=== PATIENT | female | born 1985 | race Caucasian/White ===

== ENCOUNTER 2025-02-18 11:03 | Inpatient (IN) | payer MEDICAID, SELFPAY ==
--- NOTE | 2025-02-18 11:06 | ECG_ITS ---
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
[2025-02-18 11:12] VITALS: BP 123/87; PULSE 81; RESP 18; TEMP 36.8; O2SAT 97
--- NOTE | 2025-02-18 11:24 | PC.NURSE ---
96 hour hold rights read and reviewed with patient. Patient verbalized understandings and copy of rights given to patient.
[2025-02-18 11:32] LABS: Basophils # 0.1 10^3/uL (0.0-0.1); Basophils % 0.8 %; Eosinophils # 0.2 10^3/uL (0.0-0.8); Eosinophils % 1.7 %; Hematocrit 38.4 % (36-47); Lymphocytes # 1.5 10^3/uL (0.8-4.8); Lymphocytes % 16.5 %; Mean Corpuscular HGB Conc 31.8 g/dL (30-55); Mean Corpuscular Hemoglobin 26.1 pg (27-33); Mean Corpuscular Volume 82.1 fl (85-98); Mean Platelet Volume 9.6 fL (7.4-10.4); Monocytes # 0.5 10^3/uL (0.2-0.9); Monocytes % 5.8 %; Neutrophils # 6.58 10^3/uL (1.8-7.7); Nucleated Red Blood Cells % 0 %; Platelet Count 374 10^3/cmm (157-399); Red Blood Count 4.68 10^6/uL (3.85-5.65); Red Cell Distribution Width 13.9 % (12.1-15.1); White Blood Count 8.78 10^3/uL (3.29-11.43)
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
--- NOTE | 2025-02-18 11:46 | PC.PHAR ---
patient states she used to be prescribed welbutrin 150 am and trazodone 100 qpm but haven't been filled in a very long time. long enough i cant find an external fill date
[2025-02-18 12:00] LABS: Acetaminophen < 5.0 ug/mL (10-30); Alanine Aminotransferase 13 U/L (0-33); Alcohol Level < 10 mg/dL (0-10); Alkaline Phosphatase 76 U/L (35-105); Aspartate Amino Transferase 15 U/L (0-32); Blood Urea Nitrogen 8 mg/dL (6-20); Calcium 8.9 mg/dL (8.5-10.5); Carbon Dioxide 22 mmol/L (22-29); Chloride 106 mmol/L (98-107); Globulin 2.8 g/dL (1.3-4.6); Glomerular Filtration Rate 94.2 mL/min (90-130); Glucose 96 mg/dL (65-115); Osmolality Calculated 282 mOsm/kg (285-295); Salicylate < 0.3 mg/dL (3-10); Sodium 137 mmol/L (136-145); Thyroid Stimulating Hormone 2.13 uIU/mL (0.27-4.20); Total Bilirubin 0.5 mg/dL (0.15-1.2); Total Protein 6.8 g/dL (6.6-8.7)
[2025-02-18] MEDS: LORazepam 2 mg/mL INJ 1 mL IM (12:41)
--- NOTE | 2025-02-18 13:21 | PC.NURSE ---
this nurse assumed pt care from Oneyda BENAVIDEZ at 1315.
[2025-02-18 14:56] VITALS: BP 138/84; PULSE 90; RESP 17; TEMP 36.8; O2SAT 93
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
[2025-02-18 16:48] LABS: HCG Qualitative Urine. Negative (Negative)
[2025-02-18 17:03] LABS: Amphetamines Screen Urine Positive (Negative); Barbiturates Screen Urine Negative (Negative); Benzodiazepines Screen Urine Negative (Negative); Cocaine Screen Urine Negative (Negative); Opiate Screen Urine Negative (Negative); PCP Screen Urine Negative (Negative); THC Screen Urine Negative (Negative)
[2025-02-18 17:30] LABS: Bilirubin Urine Negative (Negative); Blood Urine Negative (Negative); Glucose Urine UA Negative (Normal); Ketones Urine Negative (Negative); Leukocyte Esterase Urine Negative (Negative); Nitrate Urine Negative (Negative); Protein Urine Negative (Negative); Specific Gravity, Urine 1.013 (1.005-1.030); Urine Appearance Clear (CLEAR); Urine Color Yellow (Yellow); Urobilinogen Urine 0.2 mg/dL (Negative)
[2025-02-18 17:35] LABS: Add Urine Microscopic? YES; Bacteria Urine None Seen /hpf; Hyaline Casts Urine 0-4 /lpf; RBC Urine 0-2 /hpf (0-2); Squamous Epithelial Cell Urine 0-5 /hpf (0-5); WBC Urine 0-5 /hpf (0-5)
[2025-02-18 20:08] VITALS: BP 107/62; PULSE 89; RESP 16; TEMP 37.1; O2SAT 99
[2025-02-18] MEDS: hyDROXYzine 25 mg Capsule 50 MG PO (23:17)
[2025-02-18] MEDS: trazodone 50 mg Tablet PO (23:17)
[2025-02-19 06:00] VITALS: BP 110/75; PULSE 81; RESP 16; TEMP 36.6; O2SAT 98
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
[2025-02-19 14:00] VITALS: BP 110/61; PULSE 75; RESP 15; TEMP 37; O2SAT 97
--- NOTE | 2025-02-19 14:44 | PC.NURSE ---
THIS RN CONTACTED [facility] AND VERIFIED MEDICATIONS. PT IS ON WELBUTRIN 150 MG XL DAILY AND TRAZODONE 100 MG AT HS. NEW ORDERS RECEIVED FROM DR. LANDRY TO RESTART MEDICATIONS ABOVE. PT EDUCATED ON NEW ORDERS AND VERBALIZED UNDERSTANDING.
[2025-02-19] MEDS: buPROPion XL (24 HR) 150 mg Tablet PO (14:57)
[2025-02-19 20:31] VITALS: BP 100/67; PULSE 87; RESP 16; TEMP 37; O2SAT 96
[2025-02-19] MEDS: trazodone 100 mg Tablet PO (20:44)
[2025-02-20 06:00] VITALS: BP 103/61; PULSE 80; RESP 16; O2SAT 99
[2025-02-20] MEDS: buPROPion XL (24 HR) 150 mg Tablet PO ×2 (08:55→15:13)
[2025-02-20 14:00] VITALS: BP 113/65; PULSE 82; RESP 18; TEMP 36.5; O2SAT 96
[2025-02-20] MEDS: OLANZapine 5 mg ODT PO (14:59)
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
[2025-02-20] MEDS: trazodone 100 mg Tablet PO (19:54)
[2025-02-20 21:27] VITALS: BP 103/64; PULSE 89; RESP 16; TEMP 36.9; O2SAT 98
[2025-02-21 06:00] VITALS: BP 99/64; PULSE 70; RESP 16; O2SAT 98
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
[2025-02-21] MEDS: buPROPion XL (24 HR) 300 mg Tablet PO (09:13)
[2025-02-21 14:00] VITALS: BP 113/74; PULSE 86; RESP 18; TEMP 36.9; O2SAT 100
[2025-02-21] MEDS: hyDROXYzine 25 mg Capsule 50 MG PO (20:01)
[2025-02-21] MEDS: trazodone 100 mg Tablet PO (20:01)
--- NOTE | 2025-02-21 20:05 | PC.NURSE ---
ANXIETY PATIENT REQUESTED ANXIETY MED WHEN GIVEN SCHEDULED SLEEP ME. STATES SHE HAS NOT SLEPT GOOD SINCE ARRIVAL. PATIENT STATES SHE MISSES HER CATS, WHO SNUGGLE UP WITH HER WHEN SHE SLEEPS, VISTARIL 50 MG GIVEN, WILL CONTINUE TO MONITOR.
[2025-02-21 20:41] VITALS: BP 119/72; PULSE 88; RESP 18; TEMP 36.8; O2SAT 100
[2025-02-21] MEDS: OLANZapine 5 mg ODT PO (20:55)
--- NOTE | 2025-02-21 21:00 | PC.NURSE ---
MED FOLLOWUP PATIENT STATED CONTINUING TO HAVE ANXIETY. ZYPREXA 5MG GIVEN. WILL CONTINUE TO MONITOR.
--- NOTE | 2025-02-21 22:20 | PC.NURSE ---
MED FOLLOWUP PATIENT IN ROOM RESTING QUIETLY WITH BOTH EYES CLOSED AT THIS TIME.
[2025-02-22 06:00] VITALS: BP 120/65; PULSE 75; RESP 18; O2SAT 98
[2025-02-22] MEDS: buPROPion XL (24 HR) 300 mg Tablet PO (09:34)
[2025-02-22] MEDS: acetaminophen 325 mg Tablet 650 MG PO (09:36)
[2025-02-22 14:00] VITALS: BP 116/71; PULSE 88; RESP 16; TEMP 36.6; O2SAT 99
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
[2025-02-22 19:35] VITALS: BP 126/76; PULSE 95; RESP 18; TEMP 36.7; O2SAT 98
[2025-02-22] MEDS: ibuprofen 600 mg Tablet PO (19:35)
[2025-02-22] MEDS: trazodone 100 mg Tablet PO (21:16)
[2025-02-22] MEDS: hyDROXYzine 25 mg Capsule 50 MG PO (21:16)
[2025-02-23 06:00] VITALS: BP 108/67; PULSE 75; RESP 17; O2SAT 98
[2025-02-23] MEDS: buPROPion XL (24 HR) 300 mg Tablet PO (08:52)
[2025-02-23 14:00] VITALS: BP 124/73; PULSE 90; RESP 16; TEMP 36.8; O2SAT 97
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
[2025-02-23 20:08] VITALS: BP 122/77; PULSE 90; RESP 18; TEMP 36.6; O2SAT 100
[2025-02-23] MEDS: trazodone 100 mg Tablet PO (20:47)
[2025-02-24 06:00] VITALS: BP 94/58; PULSE 76; RESP 16; O2SAT 98
[2025-02-24] MEDS: buPROPion XL (24 HR) 300 mg Tablet PO (09:30)
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
[2025-02-24 12:28] VITALS: BP 122/77; PULSE 90; RESP 18; TEMP 36.6; O2SAT 100
== END 2025-02-24 12:43 | disposition home or self-care (01) | DRG 881 ==
LOC: ER 12:13 → NP 13:05
PROVIDERS: Admitting Provider Psychiatry & Neurology Psychiatry; Emergency Provider Emergency Medicine; Visit Provider Psychiatry & Neurology Psychiatry
DX: F32.A Depression, unspecified (principal); R45.851 Suicidal ideations; F43.10 Post-traumatic stress disorder, unspecified; Z87.820 Personal history of traumatic brain injury; F15.90 Other stimulant use, unspecified, uncomplicated
CPT/HCPCS: 36415; 80053; 80306; 80307; 81001; 81025; 84443; 85025; 93005; 96372; 97150; 97165; 99285; J2060; J9999

== ENCOUNTER 2025-02-25 06:41 | Emergency (ER) | payer MEDICAID, SELFPAY ==
[2025-02-25 07:01] VITALS: BP 144/89; PULSE 110; RESP 16; TEMP 36.8
--- NOTE | 2025-02-25 07:04 | XRR_ITS ---
PROCEDURE INFORMATION: Exam: XR Thoracic Spine Exam date and time: 02/25/2025 7:14 AM Age: 39 years old Clinical indication: Injury or trauma; Fall; Blunt trauma (contusions or hematomas) TECHNIQUE: Imaging protocol: Radiologic exam of the thoracic spine. Views: 3 views. COMPARISON: No relevant prior studies available. FINDINGS: Bones/joints: Normal. No acute fracture. Normal alignment. Soft tissues: Unremarkable. XR/XR thoracic spine 3V* [id number] IMPRESSION: No acute findings.
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
[2025-02-25] MEDS: HYDROcodone-acetaminophen 5-325 mg Tablet 1 TAB PO (07:08)
[2025-02-25] MEDS: methocarbamol 750 mg Tablet 1500 MG PO (07:08)
[2025-02-25 07:36] VITALS: BP 144/89; PULSE 109; O2SAT 98
== END 2025-02-25 07:37 | disposition home or self-care (01) ==
PROVIDERS: Emergency Provider Emergency Medicine
DX: M54.6 Pain in thoracic spine (principal); Z72.0 Tobacco use
CPT/HCPCS: 72072; 99283; J9999

== ENCOUNTER → 2025-03-15 11:15 | Outpatient (BNVA) | payer MEDICAID, SELFPAY | DX: F41.9 Anxiety disorder, unspecified (principal) | CPT/HCPCS: 84439; 84443; 84481 ==

== ENCOUNTER → 2025-05-10 12:15 | Outpatient (BNVA) | payer OTHER, SELFPAY | PROVIDERS: Visit Provider Psychiatry & Neurology Psychiatry | DX: F15.20 Other stimulant dependence, uncomplicated (principal); F33.2 Major depressive disorder, recurrent severe without psychotic features | CPT/HCPCS: 80061; 83036 ==

== ENCOUNTER → 2025-06-13 09:15 | Outpatient (BNVA) | payer OTHER, SELFPAY ==
[2025-06-13 09:31] VITALS: BP 143/94; BMI 28.9
== END ==
DX: R31.9 Hematuria, unspecified (principal)
CPT/HCPCS: 81000

== ENCOUNTER → 2025-06-30 15:24 | Outpatient (BNVA) | payer MEDICAID, SELFPAY ==
[2025-06-13 09:31] VITALS: BP 143/94; BMI 28.9
== END ==
PROVIDERS: Visit Provider Nurse Practitioner
DX: R51.9 Headache, unspecified (principal); G89.29 Other chronic pain; R53.83 Other fatigue
CPT/HCPCS: 36415; 80053; 82607; 84443; 85025

== ENCOUNTER 2025-09-06 14:29 | Outpatient (CLI) | payer MEDICAID, SELFPAY ==
[2025-06-13 09:31] VITALS: BP 143/94; BMI 28.9
--- NOTE | 2025-09-06 14:30 | MR_ITS ---
WS: [id number] MRI HEAD WITH CONTRAST TECHNIQUE: Sagittal T1, T2 axial, T2 axial FLAIR, axial susceptibility weighted imaging, axial diffusion weighted images, and coronal T2 images were obtained. Pre and post-T1 axial and post T1 coronal images. ADC and FSPGR images. CLINICAL INFORMATION: Z87.820 - Personal history of traumatic brain injury COMPARISON: None. FINDINGS: No evidence of restricted diffusion to suggest acute ischemia. Ventricular system and basal cisterns are patent. No suspicious intracranial signal abnormalities. Normal posterior fossa. Normal vascular flow voids at the skull base. No extra-axial fluid collections. Paranasal sinuses and mastoid air cells are well aerated. Normal posterior nasopharynx. No hemosiderin on susceptibility-weighted images. Normal optic chiasm and pituitary infundibulum. Temporal lobes and hippocampal formations are normal in appearance. No abnormal gadolinium enhancement. MR/MR head wo/w con [id number] IMPRESSION: 1. No evidence of restricted diffusion to suggest acute ischemia. 2. No suspicious intracranial signal abnormalities. 3. No hemosiderin on the susceptibly weighted images. 4. No abnormal gadolinium enhancement. 5. No other acute findings.
[2025-09-06] MEDS: gadobenate dimeglumine 20 mL vial IV (15:08)
== END 2025-09-06 14:30 | disposition home or self-care (01) ==
LOC: RAD 14:31
PROVIDERS: Visit Provider Nurse Practitioner
DX: Z87.820 Personal history of traumatic brain injury (principal)
CPT/HCPCS: 70553

== ENCOUNTER 2025-10-06 12:58 | Emergency (ER) | payer MEDICAID, SELFPAY ==
[2025-06-13 09:31] VITALS: BP 143/94; BMI 28.9
[2025-10-06 13:03] VITALS: BP 126/91; PULSE 86; TEMP 36.7; O2SAT 100; BMI 30.2
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
== END 2025-10-06 13:36 | disposition home or self-care (01) ==
PROVIDERS: Emergency Provider Emergency Medicine
DX: Z76.0 Encounter for issue of repeat prescription (principal)
CPT/HCPCS: 99283